=== PATIENT | male | born 1965 | race Caucasian/White ===

== ENCOUNTER 2017-09-25 07:08 | Emergency (ER) | payer OTHER ==
[~2017-09-25] VITALS: Ht 182.9 cm; Wt 90.7 kg
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
[2017-09-25 07:24] VITALS: BP 133/85
[2017-09-25] MEDS ORDERED: IBUPROFEN800 MG ORAL (07:29)
[2017-09-25 07:43] VITALS: BP 133/85
== END 2017-09-25 08:09 | disposition home or self-care (01) ==
LOC: EMR 07:30
DX: M54.5 Low back pain (principal); M79.652 Pain in left thigh; M79.651 Pain in right thigh; V43.52XA Car driver injured in collision with other type car in traffic accident, initial encounter; Y92.410 Unspecified street and highway as the place of occurrence of the external cause
CPT/HCPCS: 99283